=== PATIENT | male | born 1980 | race Caucasian/White ===

== ENCOUNTER 2016-09-21 11:19 | Emergency (ER) | payer OTHER ==
[~2016-09-21] VITALS: Ht 188 cm; Wt 81.6 kg
--- NOTE | 2016-09-21 11:20 | NUR ---
PT [facility] TO ER BED 15. HRE FOR MEDICAL EVAL PRIOR TO BOOKING. 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 GOWNED AND PLACED ON MONITOR. PD AT BEDSIDE. ADRIANA ELLSWORTH.
--- NOTE | 2016-09-21 11:39 | NUR ---
DR PLEITEZ AT BEDSIDE FOR EVAL.
[2016-09-21] MEDS ORDERED: VENLAFAXINE XR 150 MG CAP.SR.24H ONE (11:45)
[2016-09-21] MEDS ORDERED: GABAPENTIN 100 MG CAPSULE ONE (11:45)
[2016-09-21] MEDS ORDERED: ALPRAZOLAM 0.5 MG TABLET ONE (11:45)
[2016-09-21] MEDS ORDERED: VENLAFAXINE XR 150 MG CAP.SR.24H PO ONE (12:00)
[2016-09-21] MEDS ORDERED: ALPRAZOLAM 0.5 MG TABLET PO ONE (12:00)
[2016-09-21] MEDS ORDERED: GABAPENTIN 100 MG CAPSULE PO ONE (12:00)
--- NOTE | 2016-09-21 12:10 | NUR ---
MEDICALLY CLEARED FOR BOOKING. D/C TO PD IN STABLE CONDITION.
[2016-09-21 13:27] VITALS: BP 121/77
== END 2016-09-21 12:10 ==
LOC: ER 11:22
DX: F41.9 Anxiety disorder, unspecified (principal); F32.9 Major depressive disorder, single episode, unspecified
CPT/HCPCS: 99284; A4606; Z7610